=== PATIENT | female | born 1955 | race Caucasian/White ===

== ENCOUNTER 2016-10-26 20:51 | Emergency (ER) | payer SELFPAY ==
[2016-10-26 21:01] VITALS: BP 126/88; PULSE 90; TEMP 98; BMI 25.7
--- NOTE | 2016-10-26 21:26 | PDOC ---
History of Present Illness - General History Source: Patient Exam Limitations: No Limitations - History of Present Illness Initial Comments: 10/26/16 21:39 The patient is a 61 year old female, accompanied by , with a significant past medical history of AVM brain bleed, AFib, and hypertension, who presents to the emergency department s/p mechanical fall at approximately 20:30. The patient reports she was standing on the curb with her neighbors dogs, when suddenly she fell back and hit her head. The patient denies any loss of consciousness, changes in vision, headache or dizziness. Patient reports she sustained a bump on the back of her head with associated soreness. She denies any other trauma, neck pain, or back pain. She denies any chest pain, shortness of breath, diaphoresis, or palpitations. The patient reports she has a history of brain bleeds, the most recent being January 2016 s/p radiation therapy for 3 previous bleeds. Patient reports she was in rehab for several months s/p last bleed. As per , the patient had residual right sided weakness s/p previous bleed, but has been improving since. However, patient has noted she is increasingly tired towards the end of her day. Patient denies any recent travel or sick contacts. Allergies: None reported Social History: Non smoker. No ETOH or drug use. Neurologist: Dr. Garcia <Annamaria Baptiste - Last Filed: 10/26/16 21:48> <Jill Ko - Last Filed: 10/27/16 03:56> - General Chief Complaint: Injury Stated Complaint: BIBA, S/P FALL Time Seen by Provider: 10/26/16 20:55 Past History <Annamaria Baptiste - Last Filed: 10/26/16 21:48> - Past Medical History Other medical history: AVM, BRAIN BLEED - Psycho/Social/Smoking Cessation Hx Anxiety: No Suicidal Ideation: No Smoking History: Unknown if ever smoked Have you smoked in the past 12 months: No Number of Cigarettes Smoked Daily: 0 Information on smoking cessation initiated: No Hx Alcohol Use: No Drug/Substance Use Hx: No Substance Use Type: None <Jill Ko - Last Filed: 10/27/16 03:56> - Past Medical History Allergies/Adverse Reactions: Allergies Allergy/AdvReac Type Severity Reaction Status Date / Time No Known Allergies Allergy Unverified 10/26/16 20:56 Home Medications: Ambulatory Orders Atenolol [Tenormin -] 50 mg PO DAILY 10/26/16 Levetiracetam [Keppra -] 500 mg PO BID 10/26/16 Sertraline HCl [Zoloft] 25 mg PO BID 10/26/16 Review of Systems - Review of Systems Able to Perform ROS?: Yes Comments:: 10/26/16 21:39 CONSTITUTIONAL: Absent: fever, no chills, no fatigue HEAD: Present: +bump to the head with associated soreness EYES: Absent: visual changes ENT: Absent: ear pain, no sore throat CARDIOVASCULAR: Absent: chest pain, no palpitations RESPIRATORY: Absent: cough, no SOB GI: Absent: abdominal pain, no nausea, no vomiting, no constipation, no diarrhea GENITOURINARY: Absent: dysuria, no frequency, no hematuria MUSCULOSKELETAL: Absent: back pain, no arthralgia, no myalgia SKIN: Absent: rash NEUROLOGIC: Present: +residual right sided weakness Absent: headache, focal weakness or paresthesias, dizziness, unsteady gait, seizure, mental status changes, bladder or bowel incontinence <Layla Baptisteomkaren - Last Filed: 10/26/16 21:48> *Physical Exam - Vital Signs Last Vital Signs Temp Pulse Resp BP Pulse Ox 98 F 90 14 126/88 100 10/26/16 20:53 10/26/16 20:53 10/26/16 20:53 10/26/16 20:53 10/26/16 20:53 - Physical Exam Comments: 10/26/16 21:39 GENERAL: Patient is tearful on exam. The patient is awake, alert, and fully oriented, in no acute distress. HEAD: 4x4 cm mildly tender contusion of the midline vertex with nonbleeding abrasion at the central region. No other skin breakage. No other tenderness, edema, or contusions noted. EYES: Pupils equal, round and reactive to light, extraocular movements intact, sclera anicteric, conjunctiva clear with no pallor. ENT: Ears normal, nares patent, oropharynx clear without exudates. Moist mucous membranes. NECK: Normal range of motion, supple without lymphadenopathy, JVD, or masses. No tenderness. LUNGS: Breath sounds equal, clear to auscultation bilaterally. No wheeze/ crackles. HEART: Irregularly irregular, normal S1 and S2, without murmurs or rubs. ABDOMEN: Soft/nontender/nondistended. BS wnl. No guarding or rebound. No palpable masses. No hepatosplenomegaly. EXTREMITIES: Normal range of motion, no edema. No clubbing or cyanosis. No cords, erythema, or tenderness. NEUROLOGICAL: Mild right pronator drift. Speech generally fluent with minimal word recall difficulty. Strength 5/5 in all four extremities. SKIN: Warm, Dry, normal turgor, no rashes or lesions noted. <Annamaria Baptiste - Last Filed: 10/26/16 21:48> - Vital Signs Last Vital Signs Temp Pulse Resp BP Pulse Ox 98 F 90 14 126/88 100 10/26/16 20:53 10/26/16 20:53 10/26/16 20:53 10/26/16 20:53 10/26/16 20:53 <Jill Ko - Last Filed: 10/27/16 03:56> Progress Note - Progress Note Progress Note: Documentation has been prepared under my direction and personally reviewed by me in its entirety. I attest that this documented accurately reflects all work, treatment, procedures and medical decision making performed by me. 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 Patient denies lightheadedness or other symptoms prior to falling but states that the end of the day she tends to be somewhat weak and she stumbled backward, falling and hitting the back of her head. She is clear that she did not have loss of consciousness and ,other than soreness around the area of the scalp contusion, has no symptoms. Exam is as noted. Noncontrast head CT shows evidence of her previous area of vascular malformation /bleed but no new fracture/bleed/cerebral contusion. Results discussed with the patient and her . She will be discharged with instructions to avoid physical stressful activity tomorrow. Her will stay home from work to watch her. She should return if she has headache/ lethargy/vomiting or other new symptom. Follow-up with her neurologist should occur within the next several days. Bacitracin applied to the area of the scalp contusion; she should continue Neosporin/bacitracin to the area daily <Jill Ko - Last Filed: 10/27/16 03:56> *DC/Admit/Observation/Transfer - Attestations Scribe Attestion: 10/26/16 21:40 Documentation prepared by Annamaria Baptiste, acting as nuclear medical technologist for Jill Ko MD. <Annamaria Baptiste - Last Filed: 10/26/16 21:48> <Jill Ko - Last Filed: 10/27/16 03:56> Diagnosis at time of Disposition: Scalp contusion Qualifiers: Encounter type: initial encounter Qualified Code(s): S00.03XA - Contusion of scalp, initial encounter Closed head injury Qualifiers: Encounter type: initial encounter Qualified Code(s): S09.90XA - Unspecified injury of head, initial encounter - Discharge Dispostion Disposition: HOME Condition at time of disposition: Stable - Patient Instructions Printed Discharge Instructions: DI for Closed Head Injury Additional Instructions: Keep head of bed elevated tonight Ice to area of contusion over the next 24 hours Neosporin/bacitracin to abrasion daily Tylenol as needed for pain Return if you have severe headache or nausea/vomiting Follow-up with your neurologist, Dr. Garcia, within the next 5-7 days
[2016-10-26] MEDS ORDERED: ACETAMINOPHEN 325 MG TABLET (FP) ONE (21:54)
== END 2016-10-26 22:39 | disposition home or self-care (01) ==
LOC: FER 20:51
DX: S00.03XA Contusion of scalp, initial encounter (principal); S09.90XA Unspecified injury of head, initial encounter; W18.09XA Striking against other object with subsequent fall, initial encounter; Y93.89 Activity, other specified; Y92.410 Unspecified street and highway as the place of occurrence of the external cause; Q27.30 Arteriovenous malformation, site unspecified; I48.91 Unspecified atrial fibrillation; I10 Essential (primary) hypertension
CPT/HCPCS: 70450-TC; 99282-25